=== PATIENT | female | born 1985 | race Caucasian/White ===

== ENCOUNTER 2016-11-05 10:39 | Inpatient (IN) ==
[2016-11-05] MEDS ORDERED: Naloxone 0.4 MG/ML INJ IVP PRN ×2 (10:48→23:05)
[2016-11-05] MEDS ORDERED: Ondansetron 4 MG/2 ML VIAL IVP PRN ×2 (10:48→23:05)
[2016-11-05] MEDS ORDERED: Famotidine 20 MG/2 ML VIAL IVP PRN (10:48)
[2016-11-05] MEDS ORDERED: miSOPROStol 25 MCG TABLET PO STA (10:49)
[2016-11-05] MEDS ORDERED: Ringers Solution, Lactated 1,000 ML IVC SCH (11:00)
[2016-11-05] MEDS ORDERED: miSOPROStol 25 MCG TABLET VG SCH (12:00)
[2016-11-05 12:29] LABS: Basophils % 0.2 %; Eosinophils # 0.1 K/mcL (0.0-0.6); Eosinophils % 0.5 %; Hemoglobin 13.3 g/dL (11.5-15.4); Immature Granulocytes % 0.5 % (0-4); Lymphocytes # 1.5 K/mcL (0.6-4.6); Lymphocytes % 15.9 %; Mean Corpuscular HGB Conc 34.1 g/dL (31.6-35.5); Mean Corpuscular Hemoglobin 30.6 pg (28.0-33.3); Mean Corpuscular Volume 89.7 fL (83.0-100.0); Mean Platelet Volume 11.6 fL (9.4-12.4); Monocytes # 0.6 K/mcL (0.0-1.3); Monocytes % 6.7 %; Neutrophils # 7.2 K/mcL (1.6-8.9); Platelet Count 131 K/mcL (140-400); Red Blood Count 4.35 M/mcL (3.82-4.97); Red Cell Distribution Width 13.5 % (11.5-14.5); Segmented Neutrophils % 76.2 %
--- NOTE | 2016-11-05 16:18 | OB Labor Progress Note ---
Date of Encounter: 11/05/16 Time of Encounter: 16:15 Labor Progress Note - Subjective Subjective: Patient reports contractions are getting stronger. Discussed POC with patient. Patient denies any questions or concerns. - Cervix Cervix: 1.5/60/-2 - Heart Tones Heart Tones: 145 bpm moderate variability +15x15 accels no decels noted. Cat. 1 tracing. - [place]: 2-2.5 min apart - Interventions Interventions: SVE, Chaidez catheter placed for IOL. 30cc sterile water placed in balloon. Patient tolerated well. - Plan Plan: Continue labor management. Dr. Mott updated on patient status.
--- NOTE | 2016-11-05 16:20 | OB/GYN History & Physical ---
Date of Encounter: 11/05/16 Time of Encounter: 16:18 Assessment and Plan (1) 38 weeks gestation of Current visit: Yes Status: Acute (2) Two vessel umbilical cord Current visit: Yes Status: Acute (3) Amniotic fluid index increased Current visit: Yes Status: Acute History of Present Illness HPI: Ms. Gasca is a 31 year old female at 38 weeks for induction of labor. See full H&P in eCW Past Med Surg Social Fam HX - Past Medical History Medical history: no medical history, other Psychiatric history: anxiety - Social History Smoking Status: Never smoker Smokeless Tobacco Status: No Alcohol use: none Drug use: none - Family History Mother Adopted: [place]: Emmie Church Living Status: Still Living Hx Family Cardiac Disorders: No Hx Family Respiratory Disorders: No Hx Family Cancer: No Hx Family GI Disorders: No Hx Family Genitourinary Disorders: No Hx Family Endocrine Disorder: No Hx Family Musculoskeletal Disorders: No Hx Family Neuromuscular Disorders: No Hx Family Neurologic Disorders: No Hx Family HEENT Disorders: No Hx Family Autoimmune Disorders: No Hx Family Reproductive Disorders: No Hx Family Psychosocial Disorders: No Hx Family Medical Disorders: No Obstetrical History - Pregnancies : 2 Medications and Allergies Aspirin 81 mg PO ONCE 11/05/16 [History] Multi Tablet 11/05/16 [History] Allergies No Known Allergies Allergy (Verified 09/26/15 09:42) Results Result Diagrams: 11/05/16 12:04 Abnormal lab results Plt Count 131 K/mcL (140-400) L 11/05/16 12:04 All other labs normal. - VTE Reasons for not Prescribing Prophylaxis: Treatment not Indicated - Low risk for VTE
[2016-11-05] MEDS ORDERED: *HR* FentaNYL (PF) 100 MCG/2 ML VIAL EP ONE (17:34)
[2016-11-05] MEDS ORDERED: Bupivacaine-MPF 0.25% 10 ML VIAL EP ONE (17:34)
[2016-11-05] MEDS ORDERED: Epidural Premix (fent/bupiv) 110 ML EP SCH (17:45)
[2016-11-05] MEDS ORDERED: Bupivacaine-MPF 0.25% 10 ML VIAL ONE (17:47)
[2016-11-05] MEDS ORDERED: *HR* FentaNYL (PF) 100 MCG/2 ML VIAL ONE ×2 (17:47→23:07)
[2016-11-05] MEDS ORDERED: Epidural Premix (fent/bupiv) 110 ML EP ONE (17:47)
[2016-11-05] MEDS ORDERED: D5% in 0.45% NACL 1,000 ML IVC ONE ×2 (18:32→19:37)
--- NOTE | 2016-11-05 18:37 | Anesthesia Evaluation PreOp ---
Date of Encounter: 11/05/16 Time of Encounter: 17:45 - Past History Planned Operation: labor epidural Cardiac History: Denies any Significant Hx Pulmonary History: Denies Any Significant HX IT SECURITY ARCHITECT History: Denies Any Significant HX Other Medical History: Denies Any Significant HX Anesthesia History: No Prior Anesthetic Complications, Past Anesthesia (wisdom teeth extracted. No family history of anesthetic complications.) : Yes Alcohol Use: none Drug use: none Medications and Allergies Aspirin 81 mg PO ONCE 11/05/16 [History] Multi Tablet 11/05/16 [History] Allergies No Known Allergies Allergy (Verified 09/26/15 09:42) - Meds/Allergy Pre-op Review Medications Reviewed: Yes Allergies Reviewed: Yes Beta Blockers on Current Med List: No Anesthesia Results - Labs 11/05/16 12:04 Anesthesia Exam 121/84, 97, 16, 98% Height: 5'4" Weight: 220# NPO (# of Hours): 5 Pain Scale: 6 Pain Scale Used: Numeric (1 - 10) - HEENT Pupil (Motor): Pupils equal, EOMI Mallampati: II Teeth: Normal Oral Opening: Greater than 3 - IT SECURITY ARCHITECT LOC: Oriented IT SECURITY ARCHITECT Motor: Normal RUE, Normal LUE, Normal RLE, Normal LLE, Normal Face IT SECURITY ARCHITECT Sensory: Normal: RUE, LUE, RLE, LLE, Face - Cardiac Rhythm: Regular Murmur: None - Pulmonary Breath Sounds: bilateral Clear Respiratory Effort: Symmetrical Anesthesia Assess/Plan ASA Score: 2 Modified Reji Scale for Level of Consciousness: Cooperative, oriented, and tranquil Anesthetic Plan: Regional Monitoring Plan: Standard Monitors
--- NOTE | 2016-11-05 18:41 | Anesthesia Procedures ---
Date of Encounter: 11/05/16 Time of Encounter: 17:50 Procedures: Anesthesia - Epidural/Spinal Patient ID/Chart reviewed: Yes Patient examined: Yes OB Eval: Gestational age: 38 OB Eval: : 2 OB Eval: Hx Para: 1 OB Eval: Dilated at (cm): 3 OB Eval: Contractions: Non-stressed pattern Consent Obtained: Yes Supplemental Oxygen: None/Room Air Site Prep: Aseptic Technique, Sterile prep and drape, Povidone-Iodine 1% Patient position: upright Local Anesthetic: Lidocaine 1% Amount of Local Anesthetic used: 3 Touhy Needle Gauge: 18 Touhy Needle Depth (cm): 5 Catheter Depth at Skin (cm): 16 Test Dose (1.5% Lido + Epi): Volume given (mls): 3 Test Dose Result: Negative Loading Dose: 0.25% Marcaine (mls): 8 Loading Dose: Fentanyl (mcg): 100 Loading Dose Administered: Thru Catheter Infusion Med: 0.125% Bupivacaine w/ 2 mcg/ml Fentanyl Infusion Rate (mls/hr): [address]: Tegaderm, Tape Interspace Used: L3-L4 Loss of Resistance (PETTY): Yes Blood: No CSF: No Paresthesia: No Vitals + FHT's: 3 Vital Signs Time 1755 1800 1805 1810 1815 1820 BP 142/65 143/81 134/75 137/72 126/67 128/69 Pulse 101 106 105 107 101 100 FHTs 140 140 140 140 140 140
[2016-11-05] MEDS ORDERED: Oxytocin 20 units/ LR 1000 mL 20 UNIT/1,000 ML BAG IVC SCH (18:44)
[2016-11-05] MEDS ORDERED: Ringers Solution, Lactated 1,000 ML ONE (18:45)
[2016-11-05] MEDS ORDERED: EPHEDrine 50 MG/ML VIAL ONE ×2 (18:46→23:37)
[2016-11-05] MEDS ORDERED: D5% in 0.45% NACL 1,000 ML IVC SCH (19:45)
--- NOTE | 2016-11-05 20:40 | OB/GYN Progress Note ---
Date of Encounter: 11/05/16 Time of Encounter: 20:38 - Assessment and Plan (1) 38 weeks gestation of Current Visit: Yes Status: Acute (2) Two vessel umbilical cord Current Visit: Yes Status: Acute (3) Amniotic fluid index increased Current Visit: Yes Status: Acute Subjective - Subjective Interval history: Pt. comfortable with epidural Objective - Vital Signs Vital Signs: Intake and Output 11/05/16 11/05/16 11/05/16 07:59 15:59 23:59 Intake Total 480 / 480 Output Total 300 / 300 Balance 180 / 180 Intake: Oral 480 / 480 Output: Urine 300 / 300 Other: Weight 99.79 kg Patient Weight 11/05/16 23:59 Weight 99.79 kg - Exam FHR: category 1 Uterus: Present: normal Cervical dilation: 4 Cervix effacement: 50 station: -1 Comments: AROM performed with clear fluid noted. Pitocin at 1 mU/min. Contractions every 2-4 minutes. Will consider IUPC, FSE if needed. - Labs Labs: Abnormal lab results Plt Count 131 K/mcL (140-400) L 11/05/16 12:04
[2016-11-05] MEDS ORDERED: Metoclopramide 10 MG/2 ML VIAL IVP ONE (22:48)
--- NOTE | 2016-11-05 22:51 | OB/GYN Progress Note ---
Date of Encounter: 11/05/16 Time of Encounter: 22:49 - Assessment and Plan (1) 38 weeks gestation of Current Visit: Yes Status: Acute (2) Two vessel umbilical cord Current Visit: Yes Status: Acute (3) Amniotic fluid index increased Current Visit: Yes Status: Acute (4) Non-reassuring electronic monitoring tracing Current Visit: Yes Status: Acute Options discussed with pt. and family. Will proceed with C/S. Risks/benefits explained and consent signed. Pt. comfortable with decision. Subjective - Subjective Interval history: Pt. still comfortable Objective - Vital Signs Vital Signs: Intake and Output 11/05/16 11/05/16 11/05/16 07:59 15:59 23:59 Intake Total 480 / 480 Output Total 300 / 300 Balance 180 / 180 Intake: Oral 480 / 480 Output: Urine 300 / 300 Other: Weight 99.79 kg Patient Weight 11/05/16 23:59 Weight 99.79 kg - Exam Comments: Pitocin at 5 mU/min. No further cervical change. FHR having persistent variable decels. - Labs Labs: Abnormal lab results Plt Count 131 K/mcL (140-400) L 11/05/16 12:04
[2016-11-05] MEDS ORDERED: Lidocaine/EPI 1:200k 2% PF 10 ML VIAL ONE ×2 (22:59→23:00)
[2016-11-05] MEDS ORDERED: Water for inj. (sterile) 10 ML IV ONE ×2 (23:00→23:37)
[2016-11-05] MEDS ORDERED: Ibuprofen 400 MG TABLET PO PRN (23:05)
[2016-11-05] MEDS ORDERED: *HR* OxyCODONE/APAP 5/325 TABLET PO PRN (23:05)
[2016-11-05] MEDS ORDERED: *HR* HYDROmorphone (PF) 1 MG/ML SYRINGE IVP PRN (23:05)
[2016-11-05] MEDS ORDERED: *HR* Morphine 2 MG/ML SYRINGE IVP PRN (23:05)
[2016-11-05] MEDS ORDERED: *HR* Oxytocin 10 UNIT/ML VIAL IM ONE (23:13)
[2016-11-05] MEDS ORDERED: Acetaminophen IV 1,000 MG/100 ML INFUS..BTL IVPB ONE (23:14)
[2016-11-05] MEDS ORDERED: *HR* Phenylephrine 10 MG/ML VIAL ONE (23:41)
[2016-11-05] MEDS ORDERED: *HR* Morphine Sulfate/PF 5 MG/10 ML AMPUL ONE (23:47)
[2016-11-06] MEDS ORDERED: *HR* Oxytocin 10 UNIT/ML VIAL IM ONE (00:08)
--- NOTE | 2016-11-06 00:30 | OB/GYN Procedure Note ---
Section - Date of procedure: 11/06/16 Preop diagnosis: category 2 FHT tracing Post-op diagnosis: same Procedure: primary low transverse Surgeon: Shanell Mott Estimated blood loss (cc): 700 Anesthesiologist: Suyapa Leiva Ophthalmic Pathologist: Fabienne Deutsch Anesthesia Type: Epidural section complications: none Disposition: L&D Recovery Room Specimens: Placenta, Cord segment, Cord blood - (s) Infant A Delivery Date: 11/05/16 Delivery Time: 23:29 Presentation: vertex Position: LOP Route of delivery: other Gender: Male Viability: Viable Pounds: 7 Ounces: 4 Gram Weight: 3290 kg at 1 minute: 9 at 5 minutes: 9 Shoulder Dystocia: not encountered Specimens collected: cord blood Placenta: complete extraction Cord: nuchal cord, 2 umbilical vessels - Narrative Narrative: Patient was taken to the operating room and placed in supine position with left uterine displacement with augmentation of the epidural anesthesia.. Skin was then prepped and draped in usual sterile fashion, and a timeout procedure was performed. A Pfannenstiel incision was performed and extended down to the fascial layer until the abdominal cavity was entered. A bladder flap was then gently created with sharp dissection. A low transverse uterine incision was performed and extended bilaterally with bandage scissors. The membranes were then ruptured with clear fluid present. A viable male infant was delivered from a left occiput posterior presentation with scores of 9 and 9 at 1 and 5 minutes respectively and the infant weighed 7 pounds 4 ounces (3290 grams). The cord was clamped and cut, and the was handed to the nursery team. A sample of cord blood was obtained and the placenta was manually removed. The uterine cavity was wiped clean with wet lap sponge. The uterine incision was closed in a layered fashion with 0 Vicryl suture in a running locking fashion. Good hemostasis was noted. The Paracolic gutters were then gently wiped clean with wet lap sponge. Inspection was then performed with good hemostasis still noted. The fascial layer was closed with 0 PDS Stratafix suture in a running nonlocking fashion. The subcutaneous layer was irrigated with sterile water and then closed with 0 chromic suture in a running, non-locking fashion. The superficial subcutaneous layer was then closed with 4-0 Vicryl suture in a running nonlocking fashion, and continuing to close the skin in a running subcuticular fashion. A piece of Dermabond Prineo mesh was then applied over the incision site. Patient tolerated procedure well, all sponge needle and instrument counts reported as correct. Estimated blood loss was 700 mL. The urine in the Chaidez catheter was clear and yellow, and she was taken to recovery room in stable condition.
[2016-11-06] MEDS ORDERED: EPHEDrine 50 MG/ML VIAL IVP ONE (00:45)
[2016-11-06] MEDS ORDERED: EPHEDrine 50 MG/ML VIAL ONE (00:45)
[2016-11-06] MEDS: EPHEDrine 50 MG/ML VIAL IVP PRN ×2 (00:56→01:01)
--- NOTE | 2016-11-06 01:24 | Anesthesia Evaluation Post Op ---
Date of Encounter: 11/06/16 Time of Encounter: 01:20 - Vital Signs Vital Signs: 105/50, 120,14,100% - Lungs Lungs: Clear Ascult./Percussion - Airway Airway: Non-obstructed - Cardiovascular Regular Rate - Mental Status Mental Status: Alert & Oriented, Answers Appropriately - Pain Pain Scale: 0 Pain Scale used: Numeric (1 - 10) - Nausea Vomiting Nausea Vomiting: Responds to treatment with IV Meds (ws given zofran 4mg and BP treated with ephedrine.) - Hydration Hydration: NPO, Chaidez catheter - Discharge PostOp Status: Transfer Patient to floor
[2016-11-06] MEDS ORDERED: *HR* Morphine 2 MG/ML SYRINGE IVP PRN (02:28)
[2016-11-06] MEDS ORDERED: Sennosides 8.6 MG TABLET PO PRN (02:28)
[2016-11-06] MEDS ORDERED: *HR* OxyCODONE/APAP 5/325 TABLET PO PRN (02:28)
[2016-11-06] MEDS ORDERED: Naloxone 0.4 MG/ML INJ IVP PRN (02:28)
[2016-11-06] MEDS ORDERED: Metoclopramide 10 MG/2 ML VIAL IVP PRN (02:28)
[2016-11-06] MEDS ORDERED: Oxytocin 20 units/ LR 1000 mL 20 UNIT/1,000 ML BAG IV SCH (02:28)
[2016-11-06] MEDS ORDERED: Ondansetron 4 MG/2 ML VIAL IVP PRN ×2 (02:28)
[2016-11-06] MEDS ORDERED: Simethicone 80 MG TAB.CHEW PO PRN (02:28)
[2016-11-06] MEDS ORDERED: Acetaminophen IV 1,000 MG/100 ML INFUS..BTL IVPB ONE (02:28)
[2016-11-06] MEDS: Ibuprofen 600 MG TABLET PO PRN ×2 (02:57→22:21)
[2016-11-06 06:31] LABS: Basophils % 0.2 %; Eosinophils % 0.1 %; Hematocrit 29.4 % (35.3-44.9); Immature Granulocytes % 0.3 % (0-4); Lymphocytes # 1.2 K/mcL (0.6-4.6); Lymphocytes % 10.6 %; Mean Corpuscular HGB Conc 32.7 g/dL (31.6-35.5); Mean Corpuscular Hemoglobin 29.6 pg (28.0-33.3); Mean Corpuscular Volume 90.7 fL (83.0-100.0); Monocytes # 0.6 K/mcL (0.0-1.3); Monocytes % 5.4 %; Neutrophils # 9.1 K/mcL (1.6-8.9); Platelet Count 113 K/mcL (140-400); Red Blood Count 3.24 M/mcL (3.82-4.97); Red Cell Distribution Width 13.6 % (11.5-14.5); Segmented Neutrophils % 83.4 %
[2016-11-06 06:32] LABS: Hemoglobin 9.6 g/dL (11.5-15.4)
--- NOTE | 2016-11-06 09:14 | OB/GYN Progress Note ---
Date of Encounter: 11/06/16 Time of Encounter: 09:11 - Assessment and Plan (1) Status post primary low transverse section Current Visit: Yes Status: Acute Continue routine care possible discharge home tomorrow. (2) Breast feeding status of mother Current Visit: Yes Status: Acute support prn Subjective - Subjective Principal diagnosis: Postop/ day 1 Interval history: Patient resting in bed. EPCDs on bilateral lower extremities. Chaidez catheter draining clear yellow urine. Patient reports feeling dizzy. Patient had received multiple pain medications for pain and ephedrine for BP dropping after delivery. Lochia is light, no blood clots noted. FF at U/2. Will recheck vital signs at 12N. If still tachycardic and dizzy will repeat cbc this afternoon. Patient reports: pain well controlled : doing well, nursing well Objective - Vital Signs Latest vital signs: Vital Signs Temp Pulse Resp BP Pulse Ox 11/06/16 07:30 97.9 F 120 16 116/72 11/06/16 06:10 97.9 F 109 16 110/72 98 11/06/16 05:13 98.1 F 123 16 123/71 98 11/06/16 04:03 98.7 F 124 16 108/62 98 11/06/16 03:30 98.1 F 125 16 117/78 99 11/06/16 03:00 98.5 F 115 16 116/69 98 Intake and Output 11/05/16 11/06/16 11/06/16 23:59 07:59 15:59 Output Total 1250 / 1250 Balance -1250 / -1250 Output: Catheter 1250 / 1250 - Exam Lungs: bilateral: normal Chest: Normal S1, Normal S2 Extremities: Present: normal Abdomen: Present: normal appearance, soft Incision: Present: normal, dry, intact Uterus: Present: normal, firm Fundal Height: 2 (U/2) - Labs Labs: Laboratory Results - last 24 hr 11/05/16 11/06/16 11/06/16 12:04 05:05 06:16 WBC 9.5 10.9 RBC 4.35 3.24 L Hgb 13.3 9.6 L D Hct 39.0 29.4 L MCV 89.7 90.7 MCH 30.6 29.6 MCHC 34.1 32.7 RDW 13.5 13.6 Plt Count 131 L 113 L MPV 11.6 11.0 Immature Gran % 0.5 0.3 Seg Neutrophils % 76.2 83.4 Lymphocytes % 15.9 10.6 Monocytes % 6.7 5.4 Eosinophils % 0.5 0.1 Basophils % 0.2 0.2 Neutrophils # 7.2 9.1 H Lymphocytes # 1.5 1.2 Monocytes # 0.6 0.6 Eosinophils # 0.1 0.0 Basophils # 0.0 0.0 POC Glucose 136 H
[2016-11-06] MEDS: Prenatal Vit/FA 1 EACH TABLET PO SCH (10:09)
[2016-11-06] MEDS: Ibuprofen 400 MG TABLET PO PRN ×2 (10:10→15:52)
[2016-11-07 04:00] LABS: Basophils % 0.1 %; Eosinophils # 0.1 K/mcL (0.0-0.6); Eosinophils % 0.5 %; Hematocrit 25.8 % (35.3-44.9); Hemoglobin 8.6 g/dL (11.5-15.4); Immature Granulocytes % 0.5 % (0-4); Lymphocytes # 1.7 K/mcL (0.6-4.6); Mean Corpuscular HGB Conc 33.3 g/dL (31.6-35.5); Mean Corpuscular Hemoglobin 30.8 pg (28.0-33.3); Mean Corpuscular Volume 92.5 fL (83.0-100.0); Mean Platelet Volume 11.1 fL (9.4-12.4); Monocytes # 0.6 K/mcL (0.0-1.3); Monocytes % 5.8 %; Neutrophils # 8.6 K/mcL (1.6-8.9); Platelet Count 115 K/mcL (140-400); Red Blood Count 2.79 M/mcL (3.82-4.97); Segmented Neutrophils % 78.1 %
[2016-11-07] MEDS: *HR* OxyCODONE/APAP 5/325 TABLET PO PRN ×5 (04:30→21:33)
[2016-11-07] MEDS: Prenatal Vit/FA 1 EACH TABLET PO SCH (08:40)
--- NOTE | 2016-11-07 09:02 | OB/GYN Progress Note ---
Date of Encounter: 11/07/16 Time of Encounter: 08:58 - Assessment and Plan (1) Status post primary low transverse section Current Visit: Yes Status: Acute Patient is POD#1 s/p primary . She is continued to be mildly tachycardic, likely secondary to anemia. Will continue to monitor patient. Anticipate discharge home tomorrow with baby. (2) Anemia Current Visit: Yes Status: Acute Patient had EBL of 700ml with overall drop in hemoglobin from 13 to 8.6. She was dizzy after the however today she reports no symptoms - denies dizziness, shortness of breath. She continue to be mildly tachycardic. Will recheck CBC tomorrow morning and continue to monitor vital signs. Qualifiers: Anemia type: unspecified type Qualified Code(s): D64.9 - Anemia, unspecified (3) Thrombocytopenia Current Visit: Yes Status: Acute Patient with thrombocytopenia prior to delivery. Initial platelets at 130. Today 115 and starting to improve on their own. Will recheck CBC tomorrow morning to ensure she continues to improve. Subjective - Subjective Principal diagnosis: POD#1 s/p Interval history: Patient POD#1 s/p delivery. Vital signs show patient continues to be mildly tachycardic around 101-110. Patient had a EBL of 700mL during surgery and an overall hemoglobin drop from 13 to 8.6. Patient reports that she is no long dizzy and denies any shortness of breath. She reports abdominal tenderness and pain with movement. Pain controlled with PO pain medications. She has been up ambulating. She is passing gas and urinating normally. Incision dressing intact and dry. Patient reports minimal continued bleeding. I examined this patient and my medical decision-making was reviewed with the RECORDIST CHIEF/PA/Advanced Practice Nurse/Resident Physician. I agree with the documented findings, disposition and treatment plan as described except to the extent set forth below. Patient reports: appetite normal, voiding normally, pain well controlled, ambulating normally : doing well Objective - Vital Signs Latest vital signs: Vital Signs Temp Pulse Pulse Resp BP Pulse Ox 11/07/16 08:26 98.5 F 102 113/66 11/06/16 22:05 98.3 F 110 84 16 104/69 98 11/06/16 15:55 97.6 F 103 16 121/78 11/06/16 12:07 97.9 F 101 16 123/82 Intake and Output 11/06/16 11/07/16 11/07/16 23:59 07:59 15:59 Intake Total 120 / 120 Output Total 500 / 500 Balance -380 / -380 Intake: Oral 120 / 120 Output: Urine 500 / 500 Other: Weight 94.376 kg Patient Weight 11/07/16 23:59 Weight 94.376 kg - Exam Lungs: bilateral: normal Chest: Normal S1, Normal S2 Extremities: Present: normal Abdomen: Present: soft, tenderness Incision: Present: normal, intact, dressed - Labs Labs: Laboratory Results - last 24 hr 11/07/16 03:51 WBC 11.1 RBC 2.79 L Hgb 8.6 L Hct 25.8 L MCV 92.5 MCH 30.8 MCHC 33.3 RDW 14.0 Plt Count 115 L MPV 11.1 Immature Gran % 0.5 Seg Neutrophils % 78.1 Lymphocytes % 15.0 Monocytes % 5.8 Eosinophils % 0.5 Basophils % 0.1 Neutrophils # 8.6 Lymphocytes # 1.7 Monocytes # 0.6 Eosinophils # 0.1 Basophils # 0.0
[2016-11-07] MEDS: Ibuprofen 600 MG TABLET PO PRN (20:07)
[2016-11-08 04:45] LABS: Basophils % 0.2 %; Eosinophils # 0.1 K/mcL (0.0-0.6); Eosinophils % 1.1 %; Hematocrit 26.1 % (35.3-44.9); Hemoglobin 8.5 g/dL (11.5-15.4); Immature Granulocytes % 0.7 % (0-4); Lymphocytes # 1.7 K/mcL (0.6-4.6); Lymphocytes % 17.7 %; Mean Corpuscular HGB Conc 32.6 g/dL (31.6-35.5); Mean Corpuscular Hemoglobin 30.4 pg (28.0-33.3); Mean Corpuscular Volume 93.2 fL (83.0-100.0); Mean Platelet Volume 11.2 fL (9.4-12.4); Monocytes # 0.6 K/mcL (0.0-1.3); Monocytes % 5.8 %; Neutrophils # 7.2 K/mcL (1.6-8.9); Platelet Count 124 K/mcL (140-400); Segmented Neutrophils % 74.5 %
[2016-11-08] MEDS: *HR* OxyCODONE/APAP 5/325 TABLET PO PRN (06:43)
[2016-11-08 08:01] VITALS: BP 118/76
[2016-11-08] MEDS: Prenatal Vit/FA 1 EACH TABLET PO SCH (09:46)
--- NOTE | 2016-11-08 11:24 | Discharge Summary ---
Date of Encounter: 11/08/16 Time of Encounter: 11:24 - Discharge Medications Prescriptions: Ibuprofen [Motrin] 600 mg PO Q6HR PRN #60 tab PRN Reason: Pain Breast Pump [BREAST PUMP] 1 each .ROUTE AD #1 each Oxycodone HCl/Acetaminophen [Percocet 5-325 mg Tablet] 1 each PO Q4-6H PRN #30 tablet PRN Reason: Pain Home Medications: Aspirin 81 mg PO ONCE 11/05/16 [History] Multi Tablet 11/05/16 [History] Breast Pump [BREAST PUMP] 1 each .ROUTE AD #1 each 11/06/16 [Rx] Ibuprofen [Motrin] 600 mg PO Q6HR PRN #60 tab 11/08/16 [Rx] Oxycodone HCl/Acetaminophen [Percocet 5-325 mg Tablet] 1 each PO Q4-6H PRN #30 tablet 11/08/16 [Rx] Allergies/Adverse Reactions: Allergies No Known Allergies Allergy (Verified 09/26/15 09:42) Data Procedures and tests throughout hospitalization: Laboratory Tests 11/05/16 11/06/16 11/06/16 12:04 05:05 06:16 WBC 9.5 10.9 RBC 4.35 3.24 L Hgb 13.3 9.6 L D Hct 39.0 29.4 L MCV 89.7 90.7 MCH 30.6 29.6 MCHC 34.1 32.7 RDW 13.5 13.6 Plt Count 131 L 113 L MPV 11.6 11.0 Immature Gran % 0.5 0.3 Seg Neutrophils % 76.2 83.4 Lymphocytes % 15.9 10.6 Monocytes % 6.7 5.4 Eosinophils % 0.5 0.1 Basophils % 0.2 0.2 Neutrophils # 7.2 9.1 H Lymphocytes # 1.5 1.2 Monocytes # 0.6 0.6 Eosinophils # 0.1 0.0 Basophils # 0.0 0.0 POC Glucose 136 H 11/07/16 11/08/16 03:51 04:13 WBC 11.1 9.7 RBC 2.79 L 2.80 L Hgb 8.6 L 8.5 L Hct 25.8 L 26.1 L MCV 92.5 93.2 MCH 30.8 30.4 MCHC 33.3 32.6 RDW 14.0 14.0 Plt Count 115 L 124 L MPV 11.1 11.2 Immature Gran % 0.5 0.7 Seg Neutrophils % 78.1 74.5 Lymphocytes % 15.0 17.7 Monocytes % 5.8 5.8 Eosinophils % 0.5 1.1 Basophils % 0.1 0.2 Neutrophils # 8.6 7.2 Lymphocytes # 1.7 1.7 Monocytes # 0.6 0.6 Eosinophils # 0.1 0.1 Basophils # 0.0 0.0 POC Glucose Labs on day of discharge: Labs from last 24 hours 11/08/16 04:13 WBC 9.7 RBC 2.80 L Hgb 8.5 L Hct 26.1 L MCV 93.2 MCH 30.4 MCHC 32.6 RDW 14.0 Plt Count 124 L MPV 11.2 Immature Gran % 0.7 Seg Neutrophils % 74.5 Lymphocytes % 17.7 Monocytes % 5.8 Eosinophils % 1.1 Basophils % 0.2 Neutrophils # 7.2 Lymphocytes # 1.7 Monocytes # 0.6 Eosinophils # 0.1 Basophils # 0.0 Date of admission: 11/05/16 10:39 Primary care physician: Suha Fletcher CNP - Patient Status Disposition: Home, Self-Care Condition: Good Functional capacity at discharge: independent ambulation Overall status at discharge: patient is progressing back to baseline - Discharge Instructions Instructions: Anemia (GEN) Follow Up With: Suha Fletcher CNP [Primary Care Provider] - Additional Instructions: Perineal Care: Always wipe front to back Change your pad frequently Use your christie bottle with warm water and spray front to back Do not douche, use tampons, have sexual intercourse or put anything in your vagina for 4-6 weeks after delivery Bleeding: Vaginal bleeding can last up to 6 weeks Your menstrual period may return as early as 6 weeks after you are discharged from the hospital Precious/Stitches Care: Vaginal Delivery Vaginal stitches will dissolve within 4-6 weeks Follow perineal care instructions Care Stitches will dissolve on their own If you have precious, they will need to be removed in the doctors office within 5-7 days. You may shower with stitches or precious Drip plan or soapy water over the incision to clean. Pat dry gently with a clean towel. Make sure you completely dry under the skin folds DO NOT USE powders, lotions, rubbing alcohol or hydrogen peroxide on or around your incision. This will slow your wound healing It is normal to have soreness, burning, tingling, itchiness and/or numbness as your incision heals Activity: Rest frequently Do not lift anything heavier than a gallon of milk, up to 10-15 pounds No driving for 1-2 weeks for Vaginal delivery No driving for 2-4 weeks for delivery Take stairs slowly, one at a time Gradually increase your daily activity until you are back to your normal routine Do not exercise until you have had your follow-up appointment Bathing: Take a shower daily Do not take a tub bath for the first 4 weeks Diet: Drink plenty of water and fruit juices Eat a well-balanced diet with foods high in fiber such as fruits and vegetables Depression: Your hormones have a major impact on your feelings and emotions. Hormone imbalance may cause changes in your mood, creating unfamiliar thoughts and actions. Support is available to help you understand and cope with these feelings and mood changes. If you answer yes to any of the following questions, please call your health care provider: Are you having trouble sleeping? Are you feeling isolated? Have you lost your appetite? Are you having thoughts of hurting yourself or others? WARNING SIGNS: Heavy bleeding from the vagina (blood is bright red and soaks a sanitary pad in an hour or less.) Passing a blood clot larger than your fist Discharge from the vagina that has a bad odor Temperature over 100.4 F, or if you feel cold and have chills An episiotomy site that is warm, swollen or oozing. Use a mirror if needed Urination (pee) that is painful, very red and swollen or leaking fluid An incision that is painful, very red and swollen and leaking fluid An incision that has come open Breasts that are painful or full with flu like symptoms Redness, warmth or swelling in the calf of your leg Trouble breathing, dizziness, visual disturbance or faintness *Notify your health care provider immediately or go to the nearest Emergency Room if you experience any of the above signs.* To contact the nurses station 24 hours a day, For non-urgent, routine questions, please call the office at Hospital Course [employer] Time Attestation: Total time spent providing and/or coordinating discharge services: Exam - Constitutional Vitals: Temp Pulse Resp BP Pulse Ox 97.7 F 102 20 118/76 97 11/08/16 07:59 11/08/16 07:59 11/08/16 07:59 11/08/16 07:59 11/08/16 07:59 General appearance IM: A&O X 3 - Respiratory Respiratory exam: Present: CTAB - Cardiovascular Cardiovascular exam IM: Present: RRR - GI/Abdominal GI/Abdominal exam IM: normal bowel sounds Incision: normal - External exam: normal external exam Uterine Tone: Firm - Extremities Exam Extremities exam IM: Present: normal inspection - VTE Reasons for not Prescribing Prophylaxis: Treatment not Indicated - Low risk for VTE Documentation of Mechanical Device: Intermittent pneumatic compression device
== END 2016-11-08 10:59 | disposition home or self-care (01) | DRG 765 ==
LOC: 1NENULAB 10:39 → 1NENUOBS 11-06 02:53